=== PATIENT | female | born 1985 | race African-American/Black ===

== ENCOUNTER 2024-11-21 16:51 | Emergency (ER) | payer MEDICAID ==
[~2024-11-21] VITALS: Ht 170.2 cm; Wt 64.0 kg
[2024-11-21 16:55] VITALS: O2SAT 98
[2024-11-21 20:40] VITALS: BP 117/89; PULSE 80; RESP 18; TEMP 36.89184; O2SAT 99
== END 2024-11-21 21:13 | disposition home or self-care (01) ==
LOC: ER 16:51
DX: T19.3XXA Foreign body in uterus, initial encounter (principal); W44.8XXA Other foreign body entering into or through a natural orifice, initial encounter; Y93.89 Activity, other specified; Y92.89 Other specified places as the place of occurrence of the external cause; Y99.8 Other external cause status
CPT/HCPCS: 99284; Z7610; 99283